=== PATIENT | female | born 1990 | race Caucasian/White ===

== ENCOUNTER 2022-02-26 06:22 | Emergency (ER) | payer BC, OTHER ==
[2022-02-26] MEDS ORDERED: Penicillin V Potassium 250 MG Tab PO ONE (06:23)
[2022-02-26] MEDS ORDERED: Acetaminophen/HYDROcodone 325-5 MG Tab PO ONE (06:23)
[2022-02-26 06:37] VITALS: PULSE 79
[2022-02-26] MEDS ORDERED: Lidocaine 2% Viscous Solution 15 ML UD TOP ONE (06:42)
[2022-02-26] MEDS ORDERED: Lidocaine 2% Viscous Solution 15 ML UD ONE (06:43)
[2022-02-26] MEDS ORDERED: hydrOXYzine HCl 50 MG/ML SDV IM ONE (06:47)
[2022-02-26] MEDS ORDERED: Morphine 10 MG/ML SDV IM ONE (06:47)
[2022-02-26 07:10] VITALS: BP 143/90
== END 2022-02-26 07:08 | disposition home or self-care (01) ==
LOC: FB.ED 06:22
DX: K04.7 Periapical abscess without sinus (principal); F17.210 Nicotine dependence, cigarettes, uncomplicated
CPT/HCPCS: 96372; 99282; A9270; J2270; J3410